=== PATIENT | male | born 1985 | race Caucasian/White ===

== ENCOUNTER → 2016-07-07 | Outpatient (REF) | payer OTHER ==
[~2016-07-07] MED LIST: ASCO25TA PO; CLARITIN; IBUP600T OR; NAPR500T81 OR; PERC5TAB8 OR; THERGRAN; TYLE325T5 PO
== END ==
LOC: M LABSMT 10:37
PROVIDERS: ATTEND Nurse Practitioner Women's Health
DX: Z30.09 Encounter for other general counseling and advice on contraception (principal); Z53.9 Procedure and treatment not carried out, unspecified reason

== ENCOUNTER → 2016-07-07 | Outpatient (CLI) | payer OTHER ==
[2016-07-07 16:59] LABS: MEAN CORPUSCULAR HEMOGLOBIN 30.3 pg (27.0-33.0); MEAN CORPUSCULAR HGB CONC 33.6 g/dl (32.0-36.5); MEAN CORPUSCULAR VOLUME 90.3 fl (80.0-96.0); RED CELL DISTRIBUTION WIDTH 11.9 % (11.5-14.5); WHITE BLOOD COUNT 8.6 K/mm3 (4.0-10.0)
[2016-07-07 17:11] LABS: ANION GAP 7 MEQ/L (8-16); BLOOD UREA NITROGEN 15 MG/DL (7-18); CARBON DIOXIDE LEVEL 30 MEQ/L (21-32); CHLORIDE LEVEL 104 MEQ/L (98-107); GLOMERULAR FILTRATION RATE > 60.0 (>60); GLUCOSE, FASTING 83 MG/DL (70-105); POTASSIUM SERUM 4.6 MEQ/L (3.5-5.1); SODIUM LEVEL 141 MEQ/L (136-145)
[2016-07-07 17:49] LABS: INR 0.95
== END ==
LOC: M LAB 16:06
PROVIDERS: ATTEND Nurse Practitioner Women's Health
DX: Z01.818 Encounter for other preprocedural examination (principal); Z95.0 Presence of cardiac pacemaker; Z86.79 Personal history of other diseases of the circulatory system

== ENCOUNTER → 2016-08-24 | Day surgery (SDC) | payer OTHER ==
[~2016-08-24] VITALS: Ht 182.9 cm; Wt 90.7 kg
[~2016-08-24] MED LIST changes: +ACETAMINOPHEN 500 MG TAB As Ordered ONE; +ACETAMINOPHEN 500 MG TAB PO PRN; +BACITRACIN OINT 30GM As Ordered ONE; +BUPIVACAINE HCL 0.25% 30 ML VIAL As Ordered ONE; +KETOROLAC 60 MG/2 ML VIAL (J1885) As Ordered ONE; +LIDOCAINE 1% SDV INJ 30 ML VIAL As Ordered ONE; +LIDOCAINE 2% INJ 100 MG/5 ML SDV (FOR ANES.) As Ordered ONE; +LR 1,000 ML IV ONE; +LR 1,000 ML IV SCH; +MIDAZOLAM INJ 2 MG/2 ML VIAL (J2250) As Ordered ONE; +ONDANSETRON 4MG/2ML VIAL (J2405) As Ordered ONE; +ONDANSETRON 4MG/2ML VIAL (J2405) IV PRN; +PROPOFOL 200 MG/20 ML VIAL As Ordered ONE; +SCOPOLAMINE 1.5 MG TRANSDERMAL As Ordered ONE; +SCOPOLAMINE 1.5 MG TRANSDERMAL TOP ONE; +fentaNYL 100 MCG/2 ML INJECTION (J3010) As Ordered ONE; +fentaNYL 100 MCG/2 ML INJECTION (J3010) IV PRN
[2016-08-24 16:10] VITALS: BP 130/73
--- NOTE | 2016-08-25 11:53 | RO ---
DATE OF SURGERY: 08/24/2016 PREOPERATIVE DIAGNOSIS: Fertility. POSTOPERATIVE DIAGNOSIS: Fertility. SURGERY PERFORMED: Bilateral vasectomies. FINDINGS: Bilateral vas deferens. SURGEON: Glen Irving MD DOUGH SHEETER: Robby Roper, PGY3, Resident ANESTHESIA: General. COMPLICATIONS: None. ESTIMATED BLOOD LOSS (EBL): N/A. HISTORY OF PRESENT ILLNESS: This is a 31-year-old male patient, , has three children, would like to have a bilateral prophylactic vasectomy. For this reason, we agreed upon doing the surgery. He has consented for the surgery, and we are performing the surgery today. PROCEDURE DESCRIPTION: In a patient in supine position after prepping and draping the area of concern, which included the entire genitalia, and under general anesthesia, we started by palpating the left vas deferens. After palpating the left vas deferens, we placed a local anesthesia, combination of lidocaine 2% and Marcaine 0.25% a total of 5 mL around the vas deferens. We then proceeded to puncture the skin on top of the vas deferens and dilate it, spreading it with the sharp hemostats apart. We then proceeded to grab the vas deferens with ring forceps, dissect the vas deferens with a non scalpel sharp hemostat and then grab the vas deferens with another ring forceps. We then dissected the vas deferens and cut a piece of the vas deferens out for about 2 cm in length and fulgurated both ends and tied both ends with catgut chromic and sent the left vas deferens for permanent pathology analysis. We then dropped the vas deferens after securing hemostasis and closed the skin with a chromic 3-0. On the right side, we performed the same technique. We first found the right vas deferens by palpating it with the hand and then applied local anesthesia 5 mL around the vas deferens area, punctured the skin and scrotal skin with a sharp non scalpel hemostats, spread out the incision puncture site, and then grabbed with a ring forceps the vas deferens. We dissected the vas deferens out, cut a piece of the vas deferens, fulgurated each end, tied with catgut chromic 3-0 each end, and dropped each end into the scrotal sac. Send for permanent pathology analysis a piece of right vas deferens. We closed the skin with 3-0 chromic. There were no complications. PLAN: The patient will followup at [facility] in 2 months with a seminal analysis. He cannot carry heavy lifting or do exercise for 1 week. No sex for 2 weeks and can have sex after 2 weeks for 2 months with a condom. After 2 months when he has seminal analysis without any sperm in it, he can be allowed to have sex without protection. BORIS
== END ==
LOC: M SDC 10:45
PROVIDERS: ATTEND Urology
DX: Z30.2 Encounter for sterilization (principal); I49.9 Cardiac arrhythmia, unspecified; I25.10 Atherosclerotic heart disease of native coronary artery without angina pectoris; K21.9 Gastro-esophageal reflux disease without esophagitis; M54.5 Low back pain; R06.83 Snoring; Z95.0 Presence of cardiac pacemaker; Z88.5 Allergy status to narcotic agent; Z88.8 Allergy status to other drugs, medicaments and biological substances
CPT/HCPCS: 55250; 88302; J0690; J1885; J2250; J2405; J3010

== ENCOUNTER → 2016-09-13 | Outpatient (REF) | payer OTHER ==
[~2016-09-13] MED LIST changes: -ACETAMINOPHEN 500 MG TAB As Ordered ONE; -ACETAMINOPHEN 500 MG TAB PO PRN; -BACITRACIN OINT 30GM As Ordered ONE; -BUPIVACAINE HCL 0.25% 30 ML VIAL As Ordered ONE; -KETOROLAC 60 MG/2 ML VIAL (J1885) As Ordered ONE; -LIDOCAINE 1% SDV INJ 30 ML VIAL As Ordered ONE; -LIDOCAINE 2% INJ 100 MG/5 ML SDV (FOR ANES.) As Ordered ONE; -LR 1,000 ML IV ONE; -LR 1,000 ML IV SCH; -MIDAZOLAM INJ 2 MG/2 ML VIAL (J2250) As Ordered ONE; -ONDANSETRON 4MG/2ML VIAL (J2405) As Ordered ONE; -ONDANSETRON 4MG/2ML VIAL (J2405) IV PRN; -PROPOFOL 200 MG/20 ML VIAL As Ordered ONE; -SCOPOLAMINE 1.5 MG TRANSDERMAL As Ordered ONE; -SCOPOLAMINE 1.5 MG TRANSDERMAL TOP ONE; -fentaNYL 100 MCG/2 ML INJECTION (J3010) As Ordered ONE; -fentaNYL 100 MCG/2 ML INJECTION (J3010) IV PRN
[2016-09-13 13:41] LABS: MOTILE SPERM ABSENT (ABSENT)
[2016-09-13 13:42] LABS: IMMMOTILE SPERM CENTRIFUGED PRESENT (ABSENT); IMMOTILE SPERM PRESENT (ABSENT); MOTILE SPERM CENTRIFUGED ABSENT (ABSENT)
== END ==
LOC: M SMT 13:19
PROVIDERS: ATTEND Nurse Practitioner Women's Health
DX: Z30.8 Encounter for other contraceptive management (principal)

== ENCOUNTER → 2016-10-11 | Outpatient (REF) | payer OTHER ==
[2016-10-11 12:44] LABS: IMMMOTILE SPERM CENTRIFUGED PRESENT (ABSENT); IMMOTILE SPERM PRESENT (ABSENT); MOTILE SPERM ABSENT (ABSENT); MOTILE SPERM CENTRIFUGED ABSENT (ABSENT)
== END ==
LOC: M SMT 12:07
PROVIDERS: ATTEND Nurse Practitioner Women's Health
DX: Z30.8 Encounter for other contraceptive management (principal)

== ENCOUNTER → 2017-07-13 | Outpatient (REF) | payer OTHER ==
[2017-07-13 11:48] LABS: BASO # 0.1 10^3/uL (0.0-0.2); BASO % 0.7 % (0.0-1.0); EOS # 0.2 10^3/uL (0.0-0.50); EOS % 2.5 % (0.0-3.0); HEMATOCRIT 44.7 % (42.0-52.0); IMMATURE GRANULOCYTE % 0.3 % (0-3.0); LYMPH # 1.8 10^3/uL (1.5-4.5); LYMPH % 24.1 % (24.0-44.0); MEAN CORPUSCULAR HEMOGLOBIN 30.2 pg (27.0-33.0); MEAN CORPUSCULAR HGB CONC 33.6 g/dl (32.0-36.5); MEAN CORPUSCULAR VOLUME 90.1 fl (80.0-96.0); MONO # 1.1 10^3/uL (0.0-0.8); MONO % 14.7 % (0.0-5.0); NEUTROPHILS # 4.2 10^3/uL (1.8-7.7); NEUTROPHILS % 57.7 % (36.0-66.0); PLATELET COUNT, AUTOMATED 285 10^3/uL (150-450); RED BLOOD COUNT 4.96 10^6/uL (4.30-6.10); RED CELL DISTRIBUTION WIDTH 12.7 % (11.5-14.5); WHITE BLOOD COUNT 7.3 10^3/uL (4.0-10.0)
[2017-07-13 12:20] LABS: ANION GAP 6 MEQ/L (8-16); BLOOD UREA NITROGEN 17 MG/DL (7-18); CALCIUM LEVEL 8.6 MG/DL (8.5-10.1); CARBON DIOXIDE LEVEL 28 MEQ/L (21-32); CHLORIDE LEVEL 106 MEQ/L (98-107); CREATININE FOR GFR 0.76 MG/DL (0.70-1.30); GLOMERULAR FILTRATION RATE > 60.0 (>60); GLUCOSE, FASTING 86 MG/DL (70-100); PHOSPHORUS LEVEL 3.3 MG/DL (2.5-4.9); POTASSIUM SERUM 4.4 MEQ/L (3.5-5.1); SODIUM LEVEL 140 MEQ/L (136-145)
[2017-07-13 12:21] LABS: ALBUMIN 3.9 GM/DL (3.2-5.2); CHOLESTEROL LEVEL 125 MG/DL (<200); CHOLESTEROL RISK RATIO 3.289 (<5); HDL CHOLESTEROL 38 MG/DL (>40); LDL CHOLESTEROL 73.8 MG/DL (<100); NON-HDL-C 87 MG/DL; TRIGLYCERIDES LEVEL 66 MG/DL (<150)
== END ==
LOC: M LAB REF 11:35
DX: I49.5 Sick sinus syndrome (principal)
CPT/HCPCS: 36415

== ENCOUNTER → 2021-06-07 | Outpatient (REF) | payer OTHER ==
[~2021-06-07] MED LIST changes: +ASCO250T20 PO; -ASCO25TA PO
[2021-06-07 14:09] LABS: SEMEN APPEARANCE OPAQUE (OPAQUE); SEMEN VISCOSITY LIQUID (LIQUID); SEMEN VOLUME 1.7 ml (2.0-5.0)
[2021-06-07 14:10] LABS: WBC CONCENTRATION <=1 M/ml (<=1 M/ml)
== END ==
LOC: M SFHCCLAY 13:47
PROVIDERS: ATTEND Family Medicine
DX: Z31.42 Aftercare following sterilization reversal (principal)

== ENCOUNTER → 2021-06-18 | Outpatient (REF) | payer OTHER ==
[2021-06-18 13:33] LABS: SEMEN APPEARANCE OPAQUE (OPAQUE); SEMEN VISCOSITY LIQUID (LIQUID); SEMEN VOLUME 1.5 ml (2.0-5.0); WBC CONCENTRATION <=1 M/ml (<=1 M/ml)
== END ==
LOC: M SFHCCLAY 13:23
PROVIDERS: ATTEND Family Medicine
DX: Z31.42 Aftercare following sterilization reversal (principal)

== ENCOUNTER → 2021-07-22 | Outpatient (REF) | payer OTHER ==
[2021-07-22 16:26] LABS: HEMATOCRIT 46.3 % (42.0-52.0); HEMOGLOBIN 15.5 g/dl (13.5-17.5); MEAN CORPUSCULAR HEMOGLOBIN 30.3 pg (27.0-33.0); MEAN CORPUSCULAR HGB CONC 33.5 g/dl (32.0-36.5); MEAN CORPUSCULAR VOLUME 90.4 fl (80.0-96.0); PLATELET COUNT, AUTOMATED 380 10^3/uL (150-450); RED BLOOD COUNT 5.12 10^6/uL (4.30-6.10); WHITE BLOOD COUNT 6.3 10^3/uL (4.0-10.0)
[2021-07-22 16:54] LABS: ALBUMIN 4.4 GM/DL (3.2-5.2); ALT/SGPT 32 U/L (12-78); BILIRUBIN,TOTAL 0.6 MG/DL (0.2-1.0); BLOOD UREA NITROGEN 18 MG/DL (7-18); CALCIUM LEVEL 9.6 MG/DL (8.5-10.1); CARBON DIOXIDE LEVEL 29 MEQ/L (21-32); CHLORIDE LEVEL 107 MEQ/L (98-107); CHOLESTEROL LEVEL 144 MG/DL (<200); CHOLESTEROL RISK RATIO 3.512 (<5); CREATININE FOR GFR 1.01 MG/DL (0.70-1.30); GLOMERULAR FILTRATION RATE > 60.0 (>60); GLUCOSE, FASTING 91 MG/DL (70-100); HDL CHOLESTEROL 41 MG/DL (>40); LDL CHOLESTEROL 88 MG/DL (<100); NON-HDL-C 103 MG/DL; POTASSIUM SERUM 5.6 MEQ/L (3.5-5.1); SODIUM LEVEL 139 MEQ/L (136-145); TOTAL PROTEIN 7.4 GM/DL (6.4-8.2); TRIGLYCERIDES LEVEL 73 MG/DL (<150)
== END ==
LOC: M SFHCCLAY 10:44
PROVIDERS: ATTEND Nurse Practitioner Family
DX: Z13.220 Encounter for screening for lipoid disorders (principal); I49.9 Cardiac arrhythmia, unspecified

== ENCOUNTER → 2021-08-30 | Outpatient (CLI) | payer OTHER | LOC: M WHC 09:07 | PROVIDERS: ATTEND Nurse Practitioner Family | DX: Z87.448 Personal history of other diseases of urinary system (principal) ==

== ENCOUNTER → 2024-01-19 | Outpatient (CLI) | payer SELFPAY | LOC: M OUTALCOH 07:35 | PROVIDERS: ATTEND Psychiatry & Neurology Psychiatry | DX: Z03.89 Encounter for observation for other suspected diseases and conditions ruled out (principal) ==